=== PATIENT | male | born 1980 | race Caucasian/White ===

== ENCOUNTER 2016-12-27 21:11 | Emergency (ER) | payer OTHER | END 2016-12-27 22:27 | disposition home or self-care (01) | LOC: ER 21:11 | DX: S93.401A Sprain of unspecified ligament of right ankle, initial encounter (principal); I10 Essential (primary) hypertension; F17.210 Nicotine dependence, cigarettes, uncomplicated; Z90.89 Acquired absence of other organs; X50.1XXA Overexertion from prolonged static or awkward postures, initial encounter; Y92.009 Unspecified place in unspecified non-institutional (private) residence as the place of occurrence of the external cause ==

== ENCOUNTER 2017-02-08 14:49 | Emergency (ER) | payer OTHER | END 2017-02-08 17:07 | disposition home or self-care (01) | LOC: ER 14:49 | DX: K29.00 Acute gastritis without bleeding (principal); E87.6 Hypokalemia; E86.0 Dehydration; I10 Essential (primary) hypertension; F17.210 Nicotine dependence, cigarettes, uncomplicated | CPT/HCPCS: 36415; 96361; 96365; 96375 ==